=== PATIENT | male | born 1990 | race Caucasian/White ===

== ENCOUNTER 2019-05-11 11:30 | Emergency (ER) | payer BC ==
[2019-05-11 11:37] VITALS: BP 133/76
--- NOTE | 2019-05-11 11:48 | ER Document Report ---
HPI - HPI Time Seen by Provider: 05/11/19 11:34 Pain Level: 4 Notes: Patient is a 29-year-old male with no significant past medical history presents complaining of right eye irritation and possible abrasion/scratch status post injury yesterday. Patient states that his child's finger poked in the eye. He has felt irritation and some tearing since then. He does have some light sensitivity associated. Denies drug allergies. He is not aware of any foreign body otherwise. He does not wear contact lenses. No fever. Denies any headache, neck pain, URI, sore throat, chest pain, palpitations, syncope, cough, shortness of breath, wheeze, dyspnea, abdominal pain, nausea/vomiting/diarrhea, urinary retention, dysuria, hematuria, or rash. - ROS Systems Reviewed and Negative: Yes All other systems reviewed and negative - CONSTITUTIONAL Constitutional: DENIES: Fever, Chills - EENT EENT: DENIES: Sore Throat, Ear Pain, Eye problems - NEURO Neurology: DENIES: Headache, Weakness, Vision blurred, Dizzinesss / Vertigo - CARDIOVASCULAR Cardiovascular: DENIES: Chest pain - RESPIRATORY Respiratory: DENIES: Trouble Breathing, Coughing - GASTROINTESTINAL Gastrointestinal: DENIES: Abdominal Pain, Black / Bloody Stools - URINARY Urinary: DENIES: Dysuria, Urgency, Frequency - REPRODUCTIVE Reproductive: DENIES: : - MUSCULOSKELETAL Musculoskeletal: DENIES: Extremity pain Past Medical History - Social History Smoking Status: Never Smoker Chew tobacco use (# tins/day): Yes Drug Abuse: None Family History: Reviewed & Not Pertinent Patient has suicidal ideation: No Patient has homicidal ideation: No Past Surgical History: Reports: Hx Orthopedic Surgery - left shoulder. right elbow Vertical Provider Document - CONSTITUTIONAL Agree With Documented VS: Yes Notes: PHYSICAL EXAMINATION: GENERAL: Well-appearing, well-nourished and in no acute distress. A&Ox4 HEAD: Atraumatic, normocephalic. EYES: Pupils equal round and reactive to light, extraocular movements intact, sclera anicteric, conjunctiva Rt shows very mild injection w/o discharge or matting. Non-tender to palp of the globe and eye itself. No surrounding erythema or swelling noted. Wood's lamp/flourescein: + corneal abrasion noted at 7 o clock position. No laceration, ulceration, or lata sign noted. No obvious foreign body appreciated. ENT:Nares patent and without discharge. oropharynx clear without exudates. No tonsilar hypertrophy or erythema. Moist mucous membranes. Uvula midline. No palatine shift. No airway compromise. No drooling or hoarseness. NECK: Normal range of motion, supple without lymphadenopathy. No rigidity/meningismus. LUNGS: Breath sounds clear to auscultation bilaterally and equal. No wheezes rales or rhonchi. HEART: Regular rate and rhythm without murmurs, rubs, gallops. NEUROLOGICAL: Cranial nerves grossly intact. Normal speech, normal gait. PSYCH: Normal mood, normal affect. SKIN: Warm, Dry, normal turgor, no rashes or lesions noted. - INFECTION CONTROL TRAVEL OUTSIDE OF THE [place] IN LAST 30 DAYS: No Course - Re-evaluation Re-evalutation: 05/11/19 11:48 Patient is an afebrile, well-hydrated, 29-year-old male who presents to the emergency department with corneal abrasion to the left eye. Vitals are acceptable without significant tachycardia, tachypnea, or hypoxia. PE is otherwise unremarkable. Patient is nontoxic-appearing and is able to tolerate p.o. without difficulty. No labs or imaging warranted. Low suspicion for any retained corneal or lid foreign body, deep space infection including orbital cellulitis/abscess, acute glaucoma, penetrating globe injury, retinal detachment, meningitis, sepsis, fracture, compartment syndrome. I will send home with a prescription for erythromycin ointment to use as directed. Conservative measures otherwise for symptoms with proper handwashing. Recheck with your PCM in 3-5 days. Consider follow-up with ophthalmology. Return to the ED with any worsening/concerning symptoms otherwise as reviewed in discharge. Patient is in agreement. - Vital Signs Vital signs: Temp Pulse Resp BP Pulse Ox 97.8 F 77 16 133/76 H 100 05/11/19 11:36 05/11/19 11:36 05/11/19 11:36 05/11/19 11:36 05/11/19 11:36 Procedures - Eye Procedure Left Eye Irrigated w/ Saline (ccs): 20 Alcaine Drops Administered: Yes - tetracaine Fluorescein applied: Left Slit lamp used: No Discharge - Discharge Clinical Impression: Corneal abrasion, left Qualifiers: Encounter type: initial encounter Qualified Code(s): S05.02XA - Injury of conjunctiva and corneal abrasion without foreign body, left eye, initial encounter Condition: Stable Disposition: HOME, SELF-CARE Instructions: Corneal Abrasion ([facility]) Additional Instructions: Keep eyes clean Avoid scratching/touching eyes Wash hands regularly Use eye drops as directed Maintain adequate fluid intake tylenol/ibuprofen as needed over the counter cold medication as needed for symptoms F/u: with your PCM in 3-5 days for a recheck Schedule an appointment with ophthalmology for further evaluation and management Return to the ED with any worsening symptoms and/or development of fever, headache, changes in vision, eye pain, worsening eye redness, redness around the eyes, purulent discharge, sore throat, facial swelling, neck pain/stiffness, chest pain, palpitations, syncope, shortness of breath, trouble breathing, abdominal pain, n/v/d, blood in stool/urine, dysuria, or other worsening symptoms that are concerning to you. Prescriptions: Erythromycin Base [Erythromycin Oph 1 gm Oint Ud] 1 applic OP QID #1 tube Ibuprofen [Motrin 800 mg Tablet] 800 mg PO Q8H PRN #15 tab PRN Reason: Forms: Elevated Blood Pressure Referrals: JESSICA JIMENES MD [ACTIVE STAFF] - Follow up as needed
== END 2019-05-11 12:01 | disposition home or self-care (01) ==
LOC: ER 11:30
DX: S05.02XA Injury of conjunctiva and corneal abrasion without foreign body, left eye, initial encounter (principal); W50.0XXA Accidental hit or strike by another person, initial encounter; Z72.0 Tobacco use
CPT/HCPCS: 99283